=== PATIENT | female | born 1990 | race Caucasian/White ===

== ENCOUNTER → 2018-05-28 | Outpatient (CLI) | payer BC ==
--- NOTE | 2018-05-28 13:43 | RAD ---
EXAM DESCRIPTION: Elbow,Right 3 Views CLINICAL HISTORY: 28 years Female, FX OF RADIAL NECK COMPARISON: None. FINDINGS: Three views of the right elbow show a non or minimally displaced radial neck fracture with some sclerosis at the fracture plane which may resent impaction or early healing. No intra-articular extension. No additional fracture or malalignment. No joint effusion is seen. IMPRESSION: Nondisplaced radial neck fracture with impaction and/or early healing at the fracture site. Electronically signed by: Milind Rosales MD 05/28/2018 1:42 PM CDT
== END ==
LOC: RAD 09:48
PROVIDERS: ATTEND Orthopaedic Surgery
DX: S52.101D Unspecified fracture of upper end of right radius, subsequent encounter for closed fracture with routine healing (principal)